=== PATIENT | male | born 1955 | race Caucasian/White ===

== ENCOUNTER → 2017-02-08 | Outpatient (CLI) | payer OTHER ==
[2017-02-08 19:04] LABS: CALCIUM OXALATE CRYSTALS SMALL
[2017-02-10 14:14] LABS: PSA % FREE 24.5 % (.); PSA FREE 1.52 ng/mL; PSA TOTAL 6.2 ng/mL (0.0-4.0)
== END ==
LOC: M SMT 15:32
PROVIDERS: ATTEND Nurse Practitioner Women's Health
DX: R97.20 Elevated prostate specific antigen [PSA] (principal)